=== PATIENT | female | born 1980 | race Two or more races ===

== ENCOUNTER 2022-09-22 14:56 | Inpatient (IN) | payer OTHER ==
[~2022-09-22] VITALS: Ht 152.4 cm; Wt 103.4 kg
== END 2022-09-27 11:40 | disposition home or self-care (01) | DRG 745 ==
LOC: OB/GYN 14:56
PROVIDERS: ADMIT Obstetrics & Gynecology; ATTEND Obstetrics & Gynecology
PROC: 30233N1 Transfusion of Nonautologous Red Blood Cells into Peripheral Vein, Percutaneous Approach (ICD-10-PCS; 2022-09-22)
PROC: 0UDB8ZZ Extraction of Endometrium, Via Natural or Artificial Opening Endoscopic (ICD-10-PCS; principal; 2022-09-26 14:30)
DX: N84.0 Polyp of corpus uteri (principal); N84.1 Polyp of cervix uteri; D25.0 Submucous leiomyoma of uterus; Z20.822 Contact with and (suspected) exposure to COVID-19; D50.0 Iron deficiency anemia secondary to blood loss (chronic); N72 Inflammatory disease of cervix uteri